=== PATIENT | male | born 1995 | race Caucasian/White ===

== ENCOUNTER → 2018-03-12 13:26 | Emergency (ER) | payer OTHER ==
[~2018-03-12 13:26] MED LIST: Ketorolac INJ* 30 MG/ML 1 ML VIAL IV PUSH ONE; Potassium Chlor TAB* 20 MEQ TAB.ER PO ONE
--- NOTE | 2018-03-12 14:42 | ED ---
GI/ HPI - HPI Summary HPI Summary: This patient is a 22 year old M presenting to [facility] accompanied by a male with a chief complaint of right testicle pressure that began 4 days ago that has gotten worse. This morning at 1000 the pain went from intermittent to constant. The patient rates the pain 4/10 in severity. Patient denies n/v, trauma, penile d/c, and ecchymosis. No similar sx in the past and the patient is not sexually active. - History of Current Complaint Chief Complaint: EDUrogenitalProblems Time Seen by Provider: 03/12/18 14:21 Stated Complaint: TESTICLE PAIN Hx Obtained From: Patient Onset/Duration: Still Present Timing: Constant Pain Intensity: 4 - Allergy/Home Medications Allergies/Adverse Reactions: Allergies Allergy/AdvReac Type Severity Reaction Status Date / Time No Known Allergies Allergy Verified 03/12/18 13:32 Home Medications: Home Medications NK [No Home Medications Reported] 03/12/18 [History Confirmed 03/12/18] PMH/Surg Hx/FS Hx/Imm Hx Endocrine/Hematology History: Denies: Hx Blood Transfusions, Hx Anemia, Hx Unexplained Bleeding Cardiovascular History: Denies: Hx Congestive Heart Failure, Hx Coronary Artery Disease, Hx Embolism , Hx Myocardial Infarction Respiratory History: Denies: Hx Chronic Bronchitis, Hx Pleural Effusion, Hx Pulmonary Edema Psychiatric History: Denies: Hx [facility] Tx - Surgical History Surgery Procedure, Year, and Place: NONE Infectious Disease History: No Infectious Disease History: Denies: Traveled Outside the [place] in Last 30 Days - Family History Known Family History: Negative: Diabetes, Renal Disease, Respiratory Disease - Social History Alcohol Use: Occasionally Hx Substance Use: No Substance Use Type: Reports: None Hx Tobacco Use: Yes Smoking Status (MU): Current Some Day Smoker Review of Systems Negative: Vomiting, Nausea Genitourinary: Negative - trauma , Other - testicle pain Negative: discharge Negative: Bruising All Other Systems Reviewed And Are Negative: Yes Physical Exam - Summary Physical Exam Summary: VITAL SIGNS: Reviewed. GENERAL: Patient is a well-developed and nourished male whio is lying comfortable in the stretcher. Patient is not in any acute respiratory distress. HEAD AND FACE: No signs of trauma. No ecchymosis, hematomas or skull depressions. No sinus tenderness. EYES: PERRLA, EOMI x 2, No injected conjunctiva, no nystagmus. EARS: Hearing grossly intact. Ear canals and tympanic membranes are within normal limits. MOUTH: Oropharynx within normal limits. NECK: Supple, trachea is midline, no adenopathy, no JVD, no carotid bruit, no c- spine tenderness, neck with full ROM. CHEST: Symmetric, no tenderness at palpation LUNGS: Clear to auscultation bilaterally. No wheezing or crackles. CVS: Regular rate and rhythm, S1 and S2 present, no murmurs or gallops appreciated. ABDOMEN: Soft, non-tender. No signs of distention. No rebound no guarding, and no masses palpated. Bowel sounds are normal. EXTREMITIES: FROM in all major joints, no edema, no cyanosis or clubbing. NEURO: Alert and oriented x 3. No acute neurological deficits. Speech is normal and follows commands. SKIN: Dry and warm : Circumcised penis, both testicles are descended. No masses are appreciated. Positive cremasteric reflex.TTP in the right testicle Triage Information Reviewed: Yes Vital Signs On Initial Exam: Initial Vitals Temp Pulse Resp BP Pulse Ox 97.7 F 85 16 157/106 97 03/12/18 13:28 03/12/18 13:28 03/12/18 13:28 03/12/18 13:28 03/12/18 13:28 Vital Signs Reviewed: Yes Diagnostics - Vital Signs Vital Signs Temp Pulse Resp BP Pulse Ox 03/12/18 13:28 97.7 F 85 16 157/106 97 - Laboratory Result Diagrams: 03/12/18 14:42 03/12/18 14:42 Lab Statement: Any lab studies that have been ordered have been reviewed, and results considered in the medical decision making process. - Additional Comments Diagnostic Additional Comments: Testicular US reveals, per radiologist, 1. NO TESTICULAR PARENCHYMAL MASS. 2. NO SONOGRAPHIC FEATURES OF TORSION. PLEASE NOTE THAT PARTIAL OR INTERMITTENT TORSION MAY BE SONOGRAPHICALLY NORMAL. ED physician has reviewed this radiology report. GIGU Course/Dx - Course Assessment/Plan: This patient is a 22 year old M presenting to [facility] accompanied by a male with a chief complaint of right testicle pressure that began 4 days ago that has gotten worse. This morning at 1000 the pain went from intermittent to constant. The patient rates the pain 4/10 in severity. Patient denies n/v, trauma, penile d/c, and ecchymosis. No similar sx in the past and the patient is not sexually active. Blood work without any significant abnormality except for potassium level of 3.3 and glucose 113. Testicular ultrasound impression: No testicular parenchymal mass. No sonographic features of torsion. Please note that the pressure or intermittent torsion may be as sonographically normal. In the ED course and the patient was given Toradol for the pain that the symptoms have improved. The GC and chlamydia still pending therefore he will follow with the primary care physician for results. I discussed all the findings and test results with the patient. Patient was instructed to return to the emergency room immediately if any of the symptoms return or worsens. Plan of care was discussed with the patient and understands and agrees. All questions were answered at patient satisfaction. There were no further complaints or concerns. Lung exam before discharge: CTA B/L. Good air exchange. No wheezing or crackles heard. CVS: S1 and S2 present. No murmurs appreciated. Patient is alert and oriented x 3. Patient is hemodynamically stable. Patient will be discharged home with follow up PCP in the next 2-3 days - Diagnoses Differential Diagnoses - Male: Urethritis, Urinary Tract Infection Provider Diagnoses: Testicular pain, right Discharge - Sign-Out/Discharge Documenting (check all that apply): Patient Departure - Discharge Plan Condition: Stable Disposition: HOME Patient Education Materials: Testicle Pain (ED), Scrotal Pain (ED) Referrals: [facility] [place] [facility] [Outside] Additional Instructions: Follow up with your primary care physician in 1-3 days. RETURN TO THE EMERGENCY DEPARTMENT FOR CHANGING OR WORSENING SYMPTOMS. - Billing Disposition and Condition Condition: STABLE Disposition: Home - Attestation Statements Document Initiated by Fideliaibe: Yes Documenting Scribe: Ced Valle Provider For Whom Chen is Documenting (Include Credential): Washington Esposito MD Scribe Attestation: Ced Fish , scribed for Washington Esposito MD on 03/12/18 at 1828. Scribe Documentation Reviewed: Yes Provider Attestation: The documentation as recorded by the Ced tinoco accurately reflects the service I personally performed and the decisions made by me, Washington Esposito MD
[2018-03-12 14:55] LABS: ABS Basophils 0 10^3/ul (0-0.2); ABS Eosinophils 0 10^3/ul (0-0.6); ABS Lymphocytes 1.5 10^3/ul (1.0-4.8); ABS Neutrophils 6.2 10^3/ul (1.5-7.7); ABS Nucleated RBC 0 10^3/ul; Eosinophil % 0.5 % (0-6); Hematocrit 45 % (42-52); Hemoglobin 15.6 g/dl (14.0-18.0); Lymphocyte % 16.9 % (25-47); Mean Corpuscular HGB Conc 35 g/dl (31-36); Mean Corpuscular Hemoglobin 32 pg (27-31); Mean Corpuscular Volume 92 fL (80-94); Nucleated Red Blood Cells % 0; Platelet Count 283 10^3/ul (150-450); Red Blood Count 4.91 10^6/ul (4.00-5.40); Red Cell Distribution Width 13 % (10.5-15); White Blood Count 8.7 10^3/ul (3.5-10.8)
[2018-03-12 16:29] LABS: Urine Appearance Cloudy; Urine Blood Negative (Negative); Urine Color Yellow; Urine Ketones Trace (Negative); Urine Protein Negative (Negative); Urine Specific Gravity 1.019 (1.010-1.030); Urine Urobilinogen Negative (Negative)
[2018-03-12 17:30] VITALS: BP 141/87
== END | disposition home or self-care (01) ==
LOC: ED 13:26
DX: N50.811 Right testicular pain (principal); F17.200 Nicotine dependence, unspecified, uncomplicated
CPT/HCPCS: 36415; 76870; 80053; 81003; 85025; 86140; 87491; 87591; 96374; 99282; A9270-GY; J1885

== ENCOUNTER 2018-03-16 00:11 | Emergency (ER) | payer OTHER ==
[2018-03-16] MEDS ORDERED: oxyCODONE/Acetamin 5/325 MG* TAB PO ONE (00:32)
[2018-03-16] MEDS ORDERED: Ibuprofen TAB* 800 MG PO ONE (00:32)
--- NOTE | 2018-03-16 00:32 | ED ---
GI/ HPI - HPI Summary HPI Summary: Patient is a 22 y/o M w/ c/o bilateral testicular pain since yesterday. He states he began to experience right-sided testicular pain ten days ago. Pain is described as a pressure. He went to ED 03/12. Testicular US was done and negative, torsion ruled out. Patient was told to follow up with urologist, states that when he called he was told to come to ED. Testicular pain spread to other testicle yesterday, but pain is still worse at right. He denies trauma, nausea, vomiting. He reports no sexual activity. Patient notes he has felt "gassy". On triage, pain is rated 7/10. It is noted that pain is alleviated by lying down, movement aggravates pain. Home medications and allergies are reviewed. - History of Current Complaint Chief Complaint: EDUrogenitalProblems Time Seen by Provider: 03/16/18 00:21 Stated Complaint: TESTICULAR PAIN Hx Obtained From: Patient Onset/Duration: Started Days Ago - RIGHT SIDED 10 DAYS, BILATERAL YESTERDAY, Still Present Timing: Constant, Lasting Days - RIGHT SIDED 10 DAYS, BILATERAL YESTERDAY Current Severity: Severe - 7/10 Pain Intensity: 7 Additional Locations for Males: Testicles Pain Characteristics: Pressure Associated Signs and Symptoms: Positive: Other: - patient states he feels "gassy ", no trauma. Negative: Nausea, Vomiting Aggravating Factor(s): Movement Alleviating Factor(s): Position - LYING DOWN - Allergy/Home Medications Allergies/Adverse Reactions: Allergies Allergy/AdvReac Type Severity Reaction Status Date / Time No Known Allergies Allergy Verified 03/16/18 00:16 PMH/Surg Hx/FS Hx/Imm Hx Endocrine/Hematology History: Denies: Hx Blood Transfusions, Hx Anemia, Hx Unexplained Bleeding Cardiovascular History: Denies: Hx Congestive Heart Failure, Hx Coronary Artery Disease, Hx Embolism , Hx Myocardial Infarction Respiratory History: Denies: Hx Chronic Bronchitis, Hx Pleural Effusion, Hx Pulmonary Edema Psychiatric History: Denies: Hx [facility] Tx - Surgical History Surgery Procedure, Year, and Place: NONE Infectious Disease History: No Infectious Disease History: Denies: Traveled Outside the [place] in Last 30 Days - Family History Known Family History: Negative: Diabetes, Renal Disease, Respiratory Disease - Social History Alcohol Use: Occasionally Hx Substance Use: No Substance Use Type: Reports: None Substance Use Comment - Amount & Last Used: adderol Hx Tobacco Use: Yes Smoking Status (MU): Current Some Day Smoker Review of Systems Positive: Other - NEGATIVE - TRAUMA Positive: Other - PATIENT FEELS "GASSY" . Negative: Vomiting, Nausea Positive: pain - testicular All Other Systems Reviewed And Are Negative: Yes Physical Exam - Summary Physical Exam Summary: VITAL SIGNS: Reviewed. GENERAL: Patient is a well-developed and nourished male who is lying comfortable in the stretcher. Patient is not in any acute respiratory distress. HEAD AND FACE: No signs of trauma. No ecchymosis, hematomas or skull depressions. No sinus tenderness. EYES: PERRLA, EOMI x 2, No injected conjunctiva, no nystagmus. EARS: Hearing grossly intact. Ear canals and tympanic membranes are within normal limits. MOUTH: Oropharynx within normal limits. NECK: Supple, trachea is midline, no adenopathy, no JVD, no carotid bruit, no c- spine tenderness, neck with full ROM. CHEST: Symmetric, no tenderness at palpation LUNGS: Clear to auscultation bilaterally. No wheezing or crackles. CVS: Regular rate and rhythm, S1 and S2 present, no murmurs or gallops appreciated. ABDOMEN: Soft, non-tender. No signs of distention. No rebound no guarding, and no masses palpated. Bowel sounds are normal. TESTICULAR EXAM: no elevation, no redness, no swelling of testicles. Cremasteric reflex is intact and normal. EXTREMITIES: FROM in all major joints, no edema, no cyanosis or clubbing. NEURO: Alert and oriented x 3. No acute neurological deficits. Speech is normal and follows commands. SKIN: Dry and warm Triage Information Reviewed: Yes Vital Signs On Initial Exam: Initial Vitals Temp Pulse Resp BP Pulse Ox 97.8 F 91 16 125/82 96 03/16/18 00:14 18 00:14 03/16/18 00:14 18 00:14 03/16/18 00:14 Vital Signs Reviewed: Yes Diagnostics - Vital Signs Vital Signs Temp Pulse Resp BP Pulse Ox 03/16/18 00:14 97.8 F 91 16 125/82 96 - Laboratory Lab Statement: Any lab studies that have been ordered have been reviewed, and results considered in the medical decision making process. GIGU Course/Dx - Course Course Of Treatment: Patient is a 22 y/o M w/ c/o bilateral testicular pain since yesterday. He states he began to experience right-sided testicular pain ten days ago. He went to ED 03/12. Testicular US was done and negative, torsion ruled out. Patient was told to follow up with urologist, states that when he called he was told to come to ED. Testicular pain spread to other testicle yesterday, but pain is still worse at right. He denies trauma, nausea, vomiting. He reports no sexual activity. Patient notes he has felt "gassy". TESTICULAR EXAM: no elevation, no redness, no swelling of testicles. Cremasteric reflex is intact and normal. During ED course, patient was given Motrin 800 mg PO ONCE and Percocet 5/325 1 tab PO ONCE. Patient was discharged to home, instructed to follow up with urologist. - Diagnoses Provider Diagnoses: Testicular pain Discharge - Sign-Out/Discharge Documenting (check all that apply): Patient Departure - DISCHARGE - Discharge Plan Condition: Stable Disposition: HOME Prescriptions: Ibuprofen TAB* [Motrin TAB* 800 MG] 800 mg PO Q6H PRN #30 tab PRN Reason: Pain oxyCODONE/Acetamin 5/325 MG* [Percocet 5/325 TAB*] 1 tab PO Q6H PRN #10 tab MDD 4 PRN Reason: Pain Patient Education Materials: Testicle Pain (ED) Referrals: Fer Guardado MD [Medical Doctor] - 2 Days Additional Instructions: KEEP TESTICLES ELEVATED DISCUSSED AND MEDICATIONS DIRECTED. RETURN TO THE EMERGENCY DEPARTMENT FOR CHANGING OR WORSENING SYMPTOMS. FOLLOW UP WITH UROLOGIST IN 1-2 DAYS. - Attestation Statements Document Initiated by Scribe: Yes Documenting Scribe: AZEB KRAMER Provider For Whom Scribe is Documenting (Include Credential): YEE TRIMBLE MD Scribe Attestation: I, AZEB KRAMER, scribed for YEE TRIMBLE MD on 03/16/18 at 0049.
[2018-03-16 00:51] VITALS: BP 120/74
== END 2018-03-16 00:50 | disposition home or self-care (01) ==
LOC: ED 00:11
DX: N50.812 Left testicular pain (principal); N50.811 Right testicular pain; F17.210 Nicotine dependence, cigarettes, uncomplicated
CPT/HCPCS: 99282; A9270-GY

== ENCOUNTER 2018-06-12 02:38 | Emergency (ER) | payer OTHER ==
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
[2018-06-12 03:43] LABS: Urine Appearance Clear; Urine Bacteria Absent (Absent); Urine Bilirubin Negative (Negative); Urine Blood 1+ (Negative); Urine Color Straw; Urine Glucose Negative (Negative); Urine Ketones Negative (Negative); Urine Nitrite Negative (Negative); Urine Protein Negative (Negative); Urine Red Blood Cell Trace(0-2/hpf) (Absent); Urine Specific Gravity 1.002 (1.010-1.030); Urine Urobilinogen Negative (Negative); Urine White Blood Cell Absent (Absent)
[2018-06-12 03:54] LABS: Barbiturates Urine Screen None Detected (None Detect); Benzodiazepine Urine Screen None Detected (None Detect); Urine Cannabinoids Screen Presumptive Positive (None Detect)
[2018-06-12 04:08] LABS: ABS Basophils 0 10^3/ul (0-0.2); ABS Eosinophils 0.1 10^3/ul (0-0.6); ABS Lymphocytes 1.6 10^3/ul (1.0-4.8); ABS Neutrophils 7.1 10^3/ul (1.5-7.7); ABS Nucleated RBC 0 10^3/ul; Eosinophil % 0.6 %; Hematocrit 49 % (42-52); Hemoglobin 16.5 g/dl (14.0-18.0); Mean Corpuscular HGB Conc 34 g/dl (31-36); Mean Corpuscular Hemoglobin 32 pg (27-31); Mean Corpuscular Volume 93 fL (80-94); Mean Platelet Volume 7.2 fL (7.4-10.4); Nucleated Red Blood Cells % 0.1; Platelet Count 321 10^3/ul (150-450); Red Blood Count 5.22 10^6/ul (4.00-5.40); Red Cell Distribution Width 14 % (10.5-15); White Blood Count 9.8 10^3/ul (3.5-10.8)
[2018-06-12 04:24] LABS: ALT 15 U/L (7-52); AST 23 U/L (13-39); Albumin/Globulin Ratio 1.6 (1-3); Alkaline Phosphatase 68 U/L (34-104); Anion Gap 13 mmol/L (2-11); BUN/Creatinine Ratio 10.8 (8-20); Blood Urea Nitrogen 8 mg/dL (6-24); CO2 Carbon Dioxide 24 mmol/L (22-32); Calcium 10.7 mg/dL (8.6-10.3); Chloride 103 mmol/L (101-111); EGFR African American 161.6 (>60); EGFR Non-African American 133.5 (>60); Globulin 3.2 g/dL (2-4); Glucose 125 mg/dL (70-100); Potassium 3.3 mmol/L (3.5-5.0); Sodium 140 mmol/L (135-145); Total Protein 8.2 g/dL (6.4-8.9)
[2018-06-12 04:32] LABS: Acetaminophen < 15 mcg/mL; Alcohol 215 mg/dL (<10); Salicylate < 2.50 mg/dL (<30)
[2018-06-12] MEDS ORDERED: Potassium Chlor TAB* 20 MEQ TAB.ER PO ONE (05:06)
[2018-06-12] MEDS ORDERED: LORazepam TAB(*) 1 MG PO ONE ×2 (05:17)
--- NOTE | 2018-06-12 10:14 | ED ---
Progress - Progress Note Progress Note: Pt is a signout from Dr. Raza pending MHE. Course/Dx - Course Course Of Treatment: Pt is a signout from Dr. Raza, and is pending MHE. As of 1115, the pt was evaluated and his condition was discussed with Dr. Stringer. 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 He will be discharged with a dx of substance induced mood disorder, and mental health is going to try and make a follow up outpatient appointment. - Diagnoses Provider Diagnoses: Substance induced mood disorder Discharge - Sign-Out/Discharge Documenting (check all that apply): Patient Departure, Receiving Sign-Out Receiving patient FROM: Kaitlyn Raza Patient Received Moderate/Deep Sedation with Procedure: No - Discharge Plan Condition: Stable Disposition: HOME Patient Education Materials: Mood Disorders (ED), Alcohol Intoxication (ED), At -Risk Alcohol Use (ED) Forms: *School Release Referrals: [facility] [Outside] - Billing Disposition and Condition Condition: STABLE Disposition: Home - Attestation Statements Document Initiated by Fideliaibe: Yes Documenting Scribe: Polly Rollins Provider For Whom Chen is Documenting (Include Credential): Nicole Ernandez MD. Scribe Attestation: Polly Fish scribed for Nicole Ernandez MD. on 06/13/18 at 0843. Scribe Documentation Reviewed: Yes Provider Attestation: The documentation as recorded by the scribePolly accurately reflects the service I personally performed and the decisions made by Bhavna sheth MD. Status of Scribe Document: Viewed
[2018-06-12 11:26] VITALS: BP 129/71
== END 2018-06-12 11:51 | disposition home or self-care (01) ==
LOC: ED 02:38
DX: F19.94 Other psychoactive substance use, unspecified with psychoactive substance-induced mood disorder (principal)
CPT/HCPCS: 36415; 80053; 80307; 80320; 80329; 81003; 81015; 84443; 85025; 99284; A9270-GY; G0480